=== PATIENT | female | born 1965 | race Caucasian/White ===

== ENCOUNTER 2018-08-16 23:52 | Emergency (ER) | payer OTHER ==
[~2018-08-16] VITALS: Ht 167.6 cm; Wt 75.9 kg
--- OUTSIDE RECORDS SUMMARY | 2018-08-16 23:55 | XMS REPORT ---
Author Author [facility] Address Unknown Phone Unavailable Care Team Providers Care Decorator Store Name Role Phone Unavailable Unavailable Problems This patient has no known problems. Allergies, Adverse Reactions, Alerts This patient has no known allergies or adverse reactions. Medications This patient has no known medications. Results Test Description Test Time Test Comments Text Results Atomic Results Result Comments SCR MAMM BILATERAL JORDAN CAD DIGITAL 2018-02-16 12:59:01 - SCR MAMM BILATERAL JORDAN CAD DIGITALBILATERAL DIGITAL SCREENING MAMMOGRAM 3D/2D WITH CAD: 02/16/2018CLINICAL: Asymptomatic. Digital breast tomosynthesis was performed in addition to routine CC and MLO views. Current mammographic images were evaluated by either a TMMI ([employer] M-Vu or a PositiveID ImageChecker CAD (computer aided detection system). Comparison is made to exams dated 12/19/2016 mammogram, 10/28 mammogram, and 12/01/2014 mammogram - [facility]. The tissue of both breasts is heterogeneously dense. This may lower the sensitivity of mammography. No suspicious mass, architectural distortion, malignant type calcification, or lymph node abnormality detected. Breast architecture is stable compared to prior exams.IMPRESSION: NEGATIVEThere is no mammographic evidence of malignancy. Resume annual screening mammography in one year. Franck mckinney/penrad:02/16/2018 12:59:01 Plug And Mold Finisher: Latisha PLUNKETT, [facility] sent: BIRADS 1-2 Normal Mammogram BI-RADS: 1 Negative
--- OUTSIDE RECORDS SUMMARY | 2018-08-16 23:55 | XMS REPORT | Clinical Summary ---
Author Author [facility] Address Unknown Phone Unavailable Care Team Providers Care Strategic Marketing Associate Name Role Phone Radha Vega MD PCP Allergies Comments Active Allergy Reactions Severity Noted Date Citalopram Palpitations Low 11/16/2014 Citalopram Hydrobromide Palpitations Low 02/06/2012 Erythromycin Nausea And 05/10/2010 Vomiting, GI Intolerance Medications End Date Status Medication Sig Dispensed Refills Start Date Active valACYclovir (VALTREX) 0 500 MG tablet 7 Active traZODone (DESYREL) 50 MG 0 tablet 7 Active desvenlafaxine (PRISTIQ) Take 50 mg by 0 50 MG 24 hr tablet mouth daily. 7 Active ALPRAZolam (XANAX) 0.25 Take 0.25 mg 0 MG tablet by mouth 7 nightly as needed. Active nystatin (MYCOSTATIN) nystatin 0 100,000 unit/mL 100,000 suspension unit/mL oral suspension Active buPROPion XL (WELLBUTRIN Take 300 mg 0 XL) 300 MG 24 hr tablet by mouth daily. 01/12/2018 Discontinued sertraline (ZOLOFT) 100 0 201 MG tablet 7 01/12/2018 Discontinued buPROPion XL (WELLBUTRIN 0 XL) 150 MG 24 hr tablet 7 01/12/2018 Discontinued metroNIDAZOLE (FLAGYL) metronidazole 0 500 MG tablet 500 mg tablet Active Problems Problem Noted Date Hot flashes 11/13/2016 Night sweat 11/13/2016 Irritable bowel syndrome with diarrhea 11/13/2016 Former smoker 11/13/2016 Tachycardia 11/13/2016 Weight loss 11/13/2016 Depression 01/25/2011 Tobacco abuse 05/10/2010 Encounters Care Team Description Date Type Specialty Tiffany Burrows MD Routine general medical examination at a health care facility (Primary Dx); Dietary counseling; Exercise counseling; Need for influenza vaccination; Need for shingles vaccine; Screen for STD (sexually transmitted disease) 01/12/2018 Office Visit Internal Medicine after 08/15/2017 Immunizations Name Dates Previously Given Next Due FLUBLOK QUAD PF 01/12/2018 INFLUENZA QUAD 01/25/2015, 01/10/2014 Tdap 11/13/2016 Zoster Vaccine 01/12/2018 Recombinant Family History Medical History Relation Name Comments Pancreatic cancer Brother Cancer Father Vel Oneil Skin Cancer Hypertension Father Vel Oneil Depression Mother Estela Oneil Irritable bowel syndrome Mother Estela Oneil Mental illness Mother Estela Depession/anxiety Thad Breast cancer Paternal Aunt Cancer Paternal Deepti Oneil Lung & Liver Cancer Grandmother Liver cancer Paternal Deepti Oneil Grandmother Lung cancer Paternal Deepti Oneil Grandmother Relation Name Status Comments Brother Father Vel Oneil Mother Estela Oneil Paternal Aunt Paternal Grandmother Deepti Oneil Social History Date Tobacco Use Types Packs/Day Years Used 11/28/2009 - 08/28/2016 Former Smoker Cigarettes 15 Smokeless Tobacco: Never Used Comments: I smoked from when I was 17 to 23 too Alcohol Use Drinks/Week oz/Week Comments No Sex Assigned at Date Recorded Not on file Industry Job Start Date Occupation Not on file Not on file Not on file Travel End Travel History Travel Start No recent travel history available. Last Filed Vital Signs Time Taken Vital Sign Reading 01/12/2018 1:21 PM CDT Blood Pressure 135/69 01/12/2018 1:21 PM CDT Pulse 67 - Temperature - - Respiratory Rate - - Oxygen Saturation - - Inhaled Oxygen - Concentration 01/12/2018 1:21 PM CDT Weight 72.6 kg (160 lb) 01/12/2018 1:21 PM CDT Height 167.6 cm (5' 6") 01/12/2018 1:21 PM CDT Body Mass Index 25.82 Plan of Treatment Health Maintenance Due Date Last Done Comments BREAST CANCER SCREENING 03/30/2017 03/30/2016 SHINGLES VACCINES (#2) 03/14/2018 01/12/2018 INFLUENZA VACCINE 10/28/2018 01/12/2018, 01/25/2015, 01/10/2014 COLON CANCER SCREENING 08/28/2026 08/28/2016 Procedures Comments Procedure Name Priority Date/Time Associated Diagnosis CHLAMYDIA/N. GONORRHOEAE Routine 01/12/2018 Screen for STD (sexually RNA, TMA 2:13 PM CDT transmitted disease) RPR SCREEN Routine 01/12/2018 Screen for STD (sexually 2:13 PM CDT transmitted disease) HIV 1/2 ANTIGEN/ANTIBODY, Routine 01/12/2018 Screen for STD (sexually FOURTH GENERATION W/RFL 2:13 PM CDT transmitted disease) VITAMIN D 25 HYDROXY Routine 01/12/2018 Routine general medical LEVEL 2:13 PM CDT examination at a health care facility URINALYSIS, COMPLETE, Routine 01/12/2018 Routine general medical WITH REFLEX TO CULTURE 2:13 PM CDT examination at a health care facility THYROID STIMULATING Routine 01/12/2018 Routine general medical HORMONE 2:13 PM CDT examination at a health care facility T4, FREE Routine 01/12/2018 Routine general medical 2:13 PM CDT examination at a health care facility LIPID PANEL Routine 01/12/2018 Routine general medical 2:13 PM CDT examination at a health care facility HEMOGLOBIN A1C Routine 01/12/2018 Routine general medical 2:13 PM CDT examination at a health care facility COMPREHENSIVE METABOLIC Routine 01/12/2018 Routine general medical PANEL 2:13 PM CDT examination at a health care facility CBC WITH PLATELET AND Routine 01/12/2018 Routine general medical DIFFERENTIAL 2:13 PM CDT examination at a health care facility after 08/15/2017 Results * URINALYSIS, COMPLETE, WITH REFLEX TO CULTURE (01/12/2018 2:13 PM CDT) Color, UA YELLOW YELLOW [facility] [place] Appearance CLEAR CLEAR [facility] [place] Specific 1.017 1.001 - 1.035 [facility] gravity, urine [facility] [place] pH, urine 6.5 5.0 - 8.0 [facility] [place] Glucose, urine NEGATIVE NEGATIVE [facility] [place] Bilirubin, UA NEGATIVE NEGATIVE [facility] [place] Ketones, UA NEGATIVE NEGATIVE [facility] [place] Occult blood, NEGATIVE NEGATIVE [facility] urine [facility] [place] Protein, UA NEGATIVE NEGATIVE [facility] [place] Nitrite, UA NEGATIVE NEGATIVE [facility] [place] Leukocyte NEGATIVE NEGATIVE [facility] esterase, UA [facility] [place] WBC, UA 0-5 < OR=5 /HPF [facility] [place] RBC, UA 0-2 < OR=2 /HPF [facility] [place] Squamous 0-5 < OR=5 /HPF [facility] epithelial [facility]AGNOSTICS cells, UA [place] Bacteria, UA NONE SEEN NONE SEEN /HPF [facility] [place] Hyaline casts, NONE SEEN NONE SEEN /LPF [facility] UA [facility] [place] Reflex NO CULTURE INDICATED [facility] [place] Specimen Narrative Performed At FASTING:NO [facility] FASTING: NO Resulting Agency Comment Performing Organization Information: Site ID: [facility] Name: [facility] Address: [address] [place] [phone] Director: Jennifer Bernard Performing Organization Address [facility] Facility[facility] Phone Number [employer] [address] [address] * CHLAMYDIA/N. GONORRHOEAE RNA, TMA (01/12/2018 2:13 PM CDT) Pathologist [facility] [place] Chlamydia NOT DETECTED NOT DETECTED [employer] trachomatis DIAGNOSTICS RNA, [facility] Neisseria NOT DETECTED NOT DETECTED [employer] gonorrhoeae DIAGNOSTICS RNA, [facility] (Always Comment: [facility] message) This test was performed using DIAGNOSTICS the APTIMA COMBO2 Assay [place] ([employer] The analytical performance characteristics of this assay, when used to test SurePath specimens have been determined by [facility]. Specimen Narrative Performed At FASTING:NO [facility] FASTING: NO Resulting Agency Comment Performing Organization Information: Site ID: [id number] Name: [facility] Address: [address] [place] [phone] Director: Jennifer Bernard Performing Organization Address [facility]/Zipcode Phone Number [employer] [address] [address] * HIV 1/2 ANTIGEN/ANTIBODY, FOURTH GENERATION W/RFL (01/12/2018 2:13 PM CDT) Pathologist [facility] [place] HIV AG/AB 4th NON-REACTIVE NON-REACTIVE [facility] gen Comment: DIAGNOSTICS HIV-1 antigen and HIV-1/HIV-2 [place] antibodies were not detected. There is no laboratory evidence of HIV infection. PLEASE NOTE: This information has been disclosed to you from records whose confidentiality may be protected by state law.If your state requires such protection, then the state law prohibits you from making any further disclosure of the information without the specific written consent of the person to whom it pertains, or as otherwise permitted by law. A general authorization for the release of medical or other information is NOT sufficient for this purpose. For additional information please refer to http://education.TuneWiki.Treedom/faq/AWB598 (This link is being provided for informational/ educational purposes only.) The performance of this assay has not been clinically validated in patients less than 2 years old. Specimen Narrative Performed At FASTING:NO [facility] FASTING: NO Resulting Agency Comment Performing Organization Information: Site ID: A Name: [facility] Address: [address] [place] [phone] Director: Jennifer Bernard Performing Organization Address City/[facility] Facility[facility] Phone Number [employer] [address] [phone] * Vitamin D 25 hydroxy level (01/12/2018 2:13 PM CDT) [facility] Vitamin D, 24 (L) 30 - 100 ng/mL [facility] 25-hydroxy Comment: DIAGNOSTICS Vitamin D [place] Status 25-OH Vitamin D: Deficiency: <20 ng/mL Insufficiency: 20 - 29 ng/mL Optimal: > or=30 ng/mL For 25-OH Vitamin D testing on patients on D2-supplementation and patients for whom quantitation of D2 and D3 fractions is required, the QuestAssureD(TM) 25-OH VIT D, (D2,D3), LC/MS/MS is recommended: order code [id number] (patients >2yrs). For more information on this test, go to: http://education.TuneWiki.Treedom/faq/YPC471 (This link is being provided for informational/educational purposes only.) Specimen Blood Narrative Performed At FASTING:NO [facility] FASTING: NO Resulting Agency Comment Performing Organization Information: Site ID: [id number] Name: [facility] Address: [address] [place] [phone] Director: Jennifer Bernard Performing Organization Address City/[facility]/Zipcode Phone Number [employer] [address] [phone] * RPR screen (01/12/2018 2:13 PM CDT) Pathologist [facility] [place] RPR (monitor) NON-REACTIVE NON-REACTIVE [facility] w/refl titer [facility] [place] Specimen Blood Narrative Performed At FASTING:NO [facility] FASTING: NO Resulting Agency Comment Performing Organization Information: Site ID: [facility] Name: [facility] Address: [address] [place] [phone] Director: Jennifer Bernard Performing Organization Address City/[facility] Facilitycori Phone Number [employer] [place] [address] * CBC with platelet and differential (01/12/2018 2:13 PM CDT) [facility] WBC 5.7 3.8 - 10.8 [facility] Thousand/uL [facility] [place] RBC 4.27 3.80 - 5.10 [facility] Million/uL [facility] [place] HGB 13.0 11.7 - 15.5 g/dL [facility] HCT 38.9 35.0 - 45.0 % [facility] Ad[facility] [place] MCV 91.1 80.0 - 100.0 fL [facility] [place] MCH 30.4 27.0 - 33.0 pg [facility] [place] MCHC 33.4 32.0 - 36.0 g/dL [facility] [place] RDW 11.9 11.0 - 15.0 % [facility] [place] Platelet count 217 140 - 400 [facility] Thousand/uL [facility] [place] MPV 9.1 7.5 - 12.5 fL [facility] [place] Neutrophils, 3,135 1,500 - 7,800 [facility] absolute cells/uL [facility] [place] Lymphocytes, 2,035 850 - 3,900 cells/uL [facility] absolute [facility] [place] Monocytes, 382 200 - 950 cells/uL [facility] absolute [facility] [place] Eosinophils, 120 15 - 500 cells/uL [facility] absolute [facility] [place] Basophils, 29 0 - 200 cells/uL [facility] absolute [facility] [place] Neutrophils 55 % [facility] Adan [place] Lymphocytes 35.7 % [facility] [place] Monocytes 6.7 % [facility] [place] Eosinophils 2.1 % [facility] [place] Basophils + RC 0.5 % [facility]an [place] Specimen Blood Narrative Performed At FASTING:NO [facility] FASTING: NO Resulting Agency Comment Performing Organization Information: Site ID: [facility] Name: [facility] Address: [address] [place] [phone] Director: Jennifer Bernard Performing Organization Address [place]/[facility] [place] Phone Number [place] [address] * Thyroid stimulating hormone (01/12/2018 2:13 PM CDT) Pathologist [facility] [place] TSH 3.14 mIU/L [facility] Comment: [facility]ST[facility] Reference [place] Range > or=20 Years0.40-4.50 Ranges First trimester0.26-2.66 Second trimester 0.55-2.73 Third trimester0.43-2.91 Specimen Blood Narrative Performed At FASTING:NO [facility] FASTING: NO Resulting Agency Comment Performing Organization Information: Site ID: [facility] Name: [facility] Address: [address] [place] [phone] Director: Jennifer Bernard Performing Organization Address [facility] [place] [address] * T4, free (01/12/2018 2:13 PM CDT) Pathologist [facility] [place] T4, free 1.2 0.8 - 1.8 ng/dL [employer] [facility] [place] Specimen Blood Narrative Performed At FASTING:NO [facility] FASTING: NO Resulting Agency Comment Performing Organization Information: Site ID: [facility] Name: [facility] Address: [address] [place] [phone] Director: Jennifer Bernard Performing Organization Address [facility] [place] [address] * Hemoglobin A1c (01/12/2018 2:13 PM CDT) Pathologist [facility] [place] Hemoglobin A1C 5.0 <5.7 % of total Hgb [facility] Comment: DIAGNOSTICS For the purpose of screening [place] for the presence of diabetes: <5.7% Consistent with the absence of diabetes 5.7-6.4%Consistent with increased risk for diabetes (predi abetes) > or=6.5%Consistent with diabetes This assay result is consistent with a decreased risk of diabetes. Currently, no consensus exists regarding use of hemoglobin A1c for diagnosis of diabetes in children. According to [place] Diabetes Association (ADA) guidelines, hemoglobin A1c <7.0% represents optimal control in non- diabetic patients. Different metrics may apply to specific patient populations. Standards of Medical Care in Diabetes(ADA). Specimen Blood Narrative Performed At FASTING:NO [facility] FASTING: NO Resulting Agency Comment Performing Organization Information: Site ID: [facility] Name: [facility] Address: [address] [place] [phone] Director: Jennifer Bernard Performing Organization Address [facility] Facility[facility] Phone Number BLAINE BUCK [place] [address] [place] [phone] * Lipid panel (01/12/2018 2:13 PM CDT) Cholesterol, 182 <200 mg/dL [facility] total [facility] [place] HDL cholesterol 62 >50 mg/dL [facility] [place] Triglycerides 65 <150 mg/dL [facility] [place] LDL cholesterol 105 (H) mg/dL (calc) [facility] calculated Comment: DIAGNOSTICS Reference range: <100 [place] Desirable range <100 mg/dL for primary prevention; <70 mg/dL for patients with CHD or diabetic patients with > or=2 CHD risk factors. LDL-C is now calculated using the Devan-Chandler calculation, which is a validated novel method providing better accuracy than the Friedewald equation in the estimation of LDL-C. Devan CAT et al. SAMSON. 2013;310(19): 3887-1845 (http://education.Polyera.com/faq/PVT332) Cholesterol/HDL 2.9 <5.0 (calc) [facility] ratio [facility] [place] Non-HDL 120 <130 mg/dL (calc) [facility] cholesterol Comment: DIAGNOSTICS For patients with diabetes [place] plus 1 major ASCVD risk factor, treating to a non-HDL-C goal of <100 mg/dL (LDL-C of <70 mg/dL) is considered a therapeutic option. Specimen Blood Narrative Performed At FASTING:NO [facility] FASTING: NO Resulting Agency Comment Performing Organization Information: Site ID: [facility] Name: [facility] Address: [address] [place] [phone] Director: Jennifer Bernard Performing Organization Address [facility] Phone Number BLAINE [employer] [facility] [place] [address] [place] [phone] * Comprehensive metabolic panel (01/12/2018 2:13 PM CDT) Glucose 85 65 - 139 mg/dL [facility] Comment: DIAGNOSTICS Non-fasting [place] reference interval BUN, whole 14 7 - 25 mg/dL [facility] blood [facility] [place] Creatinine 0.76 0.50 - 1.05 mg/dL [facility] Comment: DIAGNOSTICS For patients >49 years of age, [place] the reference limit for Creatinine is approximately 13% higher for people identified as -Ghanaian. EGFR Non-Afr. 91 > OR=60 [facility] Ghanaian mL/min/1.73m2 [facility] [place] EGFR 105 > OR=60 [facility] Ghanaian mL/min/1.73m2 [facility] [place] BUN/creatinine NOT APPLICABLE 6 - 22 (calc) [facility] ratio [facility] [place] Sodium 140 135 - 146 mmol/L [facility] [place] Potassium 4.5 3.5 - 5.3 mmol/L [facility] [place] Chloride 100 98 - 110 mmol/L [facility] [place] CO2 30 20 - 32 mmol/L [facility] [place] Calcium 9.3 8.6 - 10.4 mg/dL [facility] [place] Protein 6.8 6.1 - 8.1 g/dL [facility] [place] Albumin, S 4.5 3.6 - 5.1 g/dL [facility] [place] Globulin, total 2.3 1.9 - 3.7 g/dL [facility] (calc) [facility] [place] Albumin/globuli 2.0 1.0 - 2.5 (calc) [facility] n ratio [facility] [place] Total bilirubin 0.7 0.2 - 1.2 mg/dL [facility] [place] Alkaline 68 33 - 130 U/L [facility] phosphatase [facility] [place] AST 13 10 - 35 U/L [facility] [place] ALT 11 6 - 29 U/L [facility] [place] Specimen Blood Narrative Performed At FASTING:NO [facility] FASTING: NO Resulting Agency Comment Performing Organization Information: Site ID: [facility] Name: [facility] Address: [address] [place] [phone] Director: Jennifer Bernard Performing Organization Address City/State/Zipcode Phone Number [employer] [place] [address] [place] [address] after 08/15/2017 Insurance Type Payer Benefit Subscriber ID Effective Phone Address Plan / Dates Group PPO HUMANA HUMANA xxxxxxxxx [id number] CHOICE resent CARE PPO Advance Directives Patient has advance care planning documents on file. For more information, pat e contact: Mars Sebastian[address] [place] [address]
[2018-08-17] MEDS ORDERED: HYDROCODONE/APAP 10MG-325MG TAB PO ONE (00:15)
--- NOTE | 2018-08-17 00:53 | Diagnostic Imaging Report ---
Exam: Left shoulder 2 views History: Pain Comparison: None. Findings: No fracture or malalignment. Joint spaces preserved. No abnormal soft tissue calcification or soft tissue defect. Impression: No acute osseous abnormality Signed by: Dr. Sheldon Campa M.D. on 08/17/2018 12:50 AM
--- NOTE | 2018-08-17 00:55 | Diagnostic Imaging Report ---
Examination: Single AP view of the chest. COMPARISON: None. INDICATION: Fall, shoulder pain DISCUSSION: Lines/tubes: None. Lungs: The lungs are well inflated and clear. No pneumonia or pulmonary edema. Pleura: No pleural effusion or pneumothorax. Heart and mediastinum: The heart and the mediastinum are unremarkable. Bones and soft tissues: No acute bony abnormalities. IMPRESSION: 1. No acute cardiopulmonary abnormalities. Signed by: Dr. Sheldon Campa M.D. on 08/17/2018 12:51 AM
[2018-08-17 01:39] VITALS: BP 132/76
== END 2018-08-17 01:50 | disposition home or self-care (01) ==
LOC: ER 23:52
DX: S00.83XA Contusion of other part of head, initial encounter (principal); S40.012A Contusion of left shoulder, initial encounter; S80.02XA Contusion of left knee, initial encounter; W01.0XXA Fall on same level from slipping, tripping and stumbling without subsequent striking against object, initial encounter; Y93.01 Activity, walking, marching and hiking; Y92.520 Airport as the place of occurrence of the external cause; F32.9 Major depressive disorder, single episode, unspecified
CPT/HCPCS: 71045; 99283